=== PATIENT | female | born 1975 | race Two or more races ===

== ENCOUNTER 2022-12-30 07:43 | Outpatient (OUT) | payer BC, SELFPAY ==
--- NOTE | 2022-12-30 08:06 | ECG_ITS ---
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
== END 2022-12-30 07:44 | disposition home or self-care (01) ==
LOC: PST 07:49
PROVIDERS: PCP Family Medicine; Visit Provider Obstetrics & Gynecology
DX: Z01.810 Encounter for preprocedural cardiovascular examination (principal); R10.2 Pelvic and perineal pain; N83.202 Unspecified ovarian cyst, left side; D25.9 Leiomyoma of uterus, unspecified
CPT/HCPCS: 93005

== ENCOUNTER 2023-01-02 06:55 | Day surgery (SDC) | payer BC, SELFPAY ==
[2022-12-24 11:55] VITALS: BP 135/74; PULSE 84; RESP 20; TEMP 37.3; O2SAT 97
[2022-12-30 08:31] VITALS: BP 119/78; PULSE 67; RESP 14; TEMP 36.2; O2SAT 99; BMI 20.8
[2023-01-02] VITALS (11 sets, daily range): BP systolic 120–135; BP diastolic 66–80; PULSE 70–83; RESP 14–29; TEMP 36.6; O2SAT 98–100; BMI 20.6
[2023-01-02] MEDS: LACTATED RINGER'S SOLUTION 1,000 ML 50 ML IV (07:19)
[2023-01-02 07:23] LABS: Basophils Percent Auto 0.8 % (0.2-2.0); Eosinophils Absolute Auto 0.1 10^3/uL (0.0-0.7); Eosinophils Percent Auto 1.5 % (0.9-7.0); Hematocrit 38.3 % (36.0-48.0); Hemoglobin 12.9 g/dL (12.0-16.0); Immature Granulocytes Abs Auto 0.01 10^3/uL (0.00-0.03); Immature Granulocytes Pct Auto 0.2 % (0.0-0.5); Lymphocytes Absolute Auto 1.3 10^3/uL (1.2-3.8); Lymphocytes Percent Auto 28.4 % (20.5-60.0); Mean Corpuscular HGB Conc 33.7 g/dL (29.9-35.2); Mean Corpuscular Hemoglobin 30.9 pg (26.7-34.0); Mean Corpuscular Volume 91.8 fL (81.0-99.0); Mean Platelet Volume 8.8 fL (9.5-13.5); Monocytes Absolute Auto 0.5 10^3/uL (0.3-0.8); Monocytes Percent Auto 9.5 % (1.7-12.0); Neutrophils Absolute Auto 2.8 10^3/uL (1.4-6.5); Neutrophils Percent Auto 59.6 % (43.0-75.0); Platelet Count 252 10^3/uL (150-450); Red Blood Count 4.17 10^6/uL (4.20-5.40); Red Cell Distribution Width 12.8 % (11.0-15.0); White Blood Count 4.7 10^3/uL (4.0-11.0)
[2023-01-02 07:35] LABS: HCG Quantitative <1 mIU/mL
[2023-01-02] MEDS: 0.9 % SODIUM CHLORIDE 1,000 ML 125 ML IV (11:34)
--- NOTE | 2023-01-02 11:38 | PM.ONB ---
Brief Operative Note Date of procedure: 01/02/23 Pre-op diagnosis: menorrhagia, adnexal mass, dysmenorrhea Post-op diagnosis: other (uterine fibroid) Procedure: NAME OF PROCEDURE: [ D&c hysteroscopy with myosure polypectomy, dx laparoscopy with removal of lt salpingectomy and rt cystectomy] large uterine fibroid, large lt tubal cyst, rt ovarian cyst, endometrial polyp PROCEDURE: The patient was taken back to the Operating Room where she was prepped and draped in normal sterile fashion after being placed under general anesthesia without difficulty. She was also placed in the dorsal lithotomy position. A weighted speculum was placed in the patient?s vagina. The anterior lip of the cervix was identified and grasped with a single tooth tenaculum. The patient?s uterus was then sounded roughly to [? 8] cm. The patient was then gently dilated using Hegar dilators. The hysteroscope was passed through the patient?s cervix into the uterus. Both ostia were identified. fluffy appearing endometrium. No gross evidence of malignancy, no gross evidence of polyps or fibroids. The MyoSure was then placed through the scope into the uterus, endometrial sampling in all quadrants was then performed. The myosure was used to remove an endometrial polyp. the myosure apparatus was removed along with the hysteroscope from the patient's uterus. At that point, gentle curettage was performed until a gritty texture was noted. The endometrial curettings were sent out to pathology. The single tooth tenaculum was then removed from the patient's anterior lip of the cervix where excellent hemostasis was noted. All instruments were removed from the patient?s vagina. The patient tolerated the procedure well. Sponge, lap and needle counts were correct times two. The patient was taken to the Recovery Room in stable condition.Room in stable condition. A wet sponge stick was placed into the patient's vagina. Attention was then turned to the patient's abdomen, where a scalpel was used to make a small infraumbilical incision. The S retractors were then used to dissect the underlying layers until the fascia could be seen. The fascia was then grasped with Shira clamps and tented up. A knife was then used to make a small incision to the fascia. The muscle was identified, at that time two sutures of #0 Vicryl on a GI needle was then used and placed through the fascia. the peritoneum was then identified and entered bluntly. The 10-4 Esteban was then placed into the patient's abdomen. This was confirmed with direct visualization of the bowel, using the laparoscope. The patient's abdomen was then insufflated using approximately 4 liters of CO2 gas. Survey of the patient's abdomen demonstrated ovaries were normal in appearance as well as both tubes and uterus. A second and third rt and lt lateral ports which were 5 and 8 mm in size, was then placed after the skin incision was made under direct visualization . The patient's tube on the patient's lt side was identified and tented up using a grasper, the ligasure apparatus was then used to come across the mesosalpingx from the fimbriated end to the insertion site at the uterus, the tube was then amputated and removed in its entirety. The tube were the removed from the patients abdomen. Ligasure was also used to perform a rt ovarian cystectomyExcellent hemostasis was noted. The lateral ports were then moved under direct visualization with excellent hemostasis. All instruments were removed from the patient's abdomen. The fascia was closed using the #0 Vicryl on GI needle. The skin was closed using 4-0 Vicryl subcuticularly. All instruments were removed from the patient's vagina as well. The patient was taken out of the dorsal lithotomy position and placed in the supine position and taken to recovery in stable condition. Sponge, lap and needle counts were correct x2. Anesthesia: KEYONA Surgeon: Nelson Davis Strawhat Blocking Operator: Cathie Rubin Estimated blood loss (mL): 5 Pathology: other (uterine polyp and lt tube and rt ovarian cyst, endometrial currettings) Condition: stable Disposition: PACU
--- NOTE | 2023-01-02 13:59 | PC.NURSE ---
Patient had pink tinged urine but was able to urinate and is ready for discharge.
== END 2023-01-02 13:55 | disposition home or self-care (01) ==
PROVIDERS: PCP Family Medicine; Visit Provider Obstetrics & Gynecology
PROC: (CPT 49322; principal; 2023-01-02 08:40)
DX: R10.2 Pelvic and perineal pain (principal); D25.9 Leiomyoma of uterus, unspecified; N84.0 Polyp of corpus uteri; F41.9 Anxiety disorder, unspecified; N83.201 Unspecified ovarian cyst, right side; N83.8 Other noninflammatory disorders of ovary, fallopian tube and broad ligament
CPT/HCPCS: 49322; 58558; 58661; 36415; 84702; 85025; 88302; 88305; J2704